=== PATIENT | female | born 2000 | race Caucasian/White ===

== ENCOUNTER → 2018-10-23 14:28 | Outpatient (CLI) | payer OTHER, SELFPAY ==
[2018-10-23 17:09] LABS: Internal QC Validated? YES +Cl - CLEAR BKGD; Pregnancy, Urine Negative Negative
--- OUTSIDE RECORDS SUMMARY | 2018-12-26 02:47 | XMS RPT_ITS ---
:2000 Author Organization OHIP Care Team Providers Name Role Phone LUC ROJAS Attending Unavailable LUC ROJAS Referring Unavailable YAJAIRA AYON Attending Unavailable YAJAIRA AYON Referring Unavailable Eulalia Ford PA-C Attending Unavailable Eulalia Ford PA-C Referring Unavailable Antwon Madrigal Primary Care Unavailable PROBLEMS PROBLEMS DATE TYPE CONDITION / CODE ATTENDING STATUS SOURCE 10/24/2018 Active Encounter for Active [place] screening for Clinic Main infections with a [place] predominantly Repository sexual mode of transmission / Z11.3(ICD-10) 10/23/2018 Unknown L70.0 - Acne Eulalia Ford PA-C Active [facility] / Community L70.0(ICD-10) Hospital Repository 02/03/2018 Admitting Encounter for YAJAIRA AYON Active [facility] Diagnosis pre-[place] ([place] examination / Repository Z02.1(ICD-10) PROCEDURES PROCEDURES No Procedure Records FoundRESULTS RESULTS PROGRESS Observed: 10/23/2018 Status: COMPLETED Source: [place] 4:04 PM [facility] REPOSITORY HNO ID: [id number] Author: Luc Tee Service: (none) Author Type: Physician Type: Progress Notes Filed: 10/23/2018 4:42 PM Note Text: Genny Harrison is a 18 year old who presents for her annual gynecologic exam without complaints. Take OCPs and spironolactone for acne with improvement. In college- sophomore- studying OT Menses: cycles every 28 days and 3-4 days of flow. Contraception: oral contraceptives HPV vaccine: unsure Last pap smear: never Sexually active: Yes History of STDS: None Patient concerns for STD exposure: No. Pain with intercourse: No Postcoital bleeding: No Exercise: routine Diet: Obstetric History T0 L0 SAB0 TAB0 Ectopic0 Multiple0 Live Births0 PAST MEDICAL HISTORY Diagnosis Date - Irregular menses - Unspecified disorder of thyroid mother No past surgical history on file.History reviewed. No pertinent family history.SOCIAL HISTORY Social History Substance Use Topics - Smoking status: Never Smoker - Smokeless tobacco: Never Used - Alcohol use No REVIEW OF SYSTEMS Abdomen: No bloating, early satiety, indigestion, or increased flatulence. No abdominal pain, nausea, vomiting, diarrhea, or constipation. Bladder: No dysuria, gross hematuria, urinary frequency, urinary urgency, or incontinence. Breast: No breast lumps, nipple d/c, overlying skin changes, redness or skin retraction. Allergies and current medication updated:Yes EXAM: BP 108/70 Ht 5' 2.5 (1.59m) Wt 121 lb (54.9kg) LMP 10/09/2018 BMI 21.76 kg/(m2). GENERAL: pleasant, female in no apparent distress HEENT: Normocephalic, atraumatic, mucus membranes moist and no lesions NECK: Supple, full range of motion, no adenopathy and thyroid normal DERMATOLOGY: Normal, without lesions, non-icteric and non-hirsute ABDOMEN: soft, non-tender and no masses PELVIC: deferred BIMANUAL: deferred NEURO: alert and oriented x3,exam grossly non-focal EXTREMITIES: normal ASSESSMENT/PLAN: 1) Health maintenance: Pap starting at the age of 21. Nutrition, exercise, and routine health maintenance exams reviewed. HPV vaccine 2) Contraception: oral contraceptives . Contraceptive options reviewed and information provided. 3) STD screening: Accepted STD check for Gonorrhea and Chlamydia. 4) Follow up one year or sooner as needed. Luc Young MD. ESME Observed: 10/23/2018 Status: COMPLETED Source: [place] 3:50 PM [facility] REPOSITORY Office Visit ([facility]OOB) GENNY HARRISON ([id number]) 2000 F Date Time Provider Department 10/23/18 3:50 PM LUC ROJAS During your visit today, we recorded the following information about you: Blood pressure Weight Height Last Period 108/70 54.9 kg 1.588 m 10/09/18 Luc Young MD 10/23/2018 4:42 PM Signed Genny Harrison is a 18 year old who presents for her annual gynecologic exam without complaints. Take OCPs and spironolactone for acne with improvement. In college- sophomore- studying OT Menses: cycles every 28 days and 3-4 days of flow. Contraception: oral contraceptives HPV vaccine: unsure Last pap smear: never Sexually active: Yes History of STDS: None Patient concerns for STD exposure: No. Pain with intercourse: No Postcoital bleeding: No Exercise: routine Diet: Obstetric History T0 L0 SAB0 TAB0 Ectopic0 Multiple0 Live Births0 PAST MEDICAL HISTORY Diagnosis Date - Irregular menses - Unspecified disorder of thyroid mother No past surgical history on file.History reviewed. No pertinent family history.SOCIAL HISTORY Social History Substance Use Topics - Smoking status: Never Smoker - Smokeless tobacco: Never Used - Alcohol use No REVIEW OF SYSTEMS Abdomen: No bloating, early satiety, indigestion, or increased flatulence. No abdominal pain, nausea, vomiting, diarrhea, or constipation. Bladder: No dysuria, gross hematuria, urinary frequency, urinary urgency, or incontinence. Breast: No breast lumps, nipple d/c, overlying skin changes, redness or skin retraction. Allergies and current medication updated:Yes EXAM: BP 108/70 Ht 5' 2.5 (1.59m) Wt 121 lb (54.9kg) LMP 10/09/2018 BMI 21.76 kg/(m2). GENERAL: pleasant, female in no apparent distress HEENT: Normocephalic, atraumatic, mucus membranes moist and no lesions NECK: Supple, full range of motion, no adenopathy and thyroid normal DERMATOLOGY: Normal, without lesions, non-icteric and non-hirsute ABDOMEN: soft, non-tender and no masses PELVIC: deferred BIMANUAL: deferred NEURO: alert and oriented x3,exam grossly non-focal EXTREMITIES: normal ASSESSMENT/PLAN: 1) Health maintenance: Pap starting at the age of 21. Nutrition, exercise, and routine health maintenance exams reviewed. HPV vaccine 2) Contraception: oral contraceptives . Contraceptive options reviewed and information provided. 3) STD screening: Accepted STD check for Gonorrhea and Chlamydia. 4) Follow up one year or sooner as needed. Luc Young MD. Referring Provider: SELF [[id number]] Allergies As of Date: 10/23/2018 (No Known Allergies) Date Reviewed: 10/23/2018 Reviewed by: Arin Navarrete Ma - Fully Assessed Primary Visit Diagnosis:Screen for STD (sexually transmitted disease) [Z11.3] Other Visit Diagnoses:Encounter for gynecological examination (general) (routine) without abnormal findings [Z01.419] Encounter for surveillance of contraceptive pills [Z30.41] Order(s):Drospirenone-Ethinyl Estradiol (MAYURI, 28,) 3-0.02 mg per tabletTake 1 tablet by mouth once daily.Disp: 1 PackageRfl: 11 GC/CHLAMYDIA AMPLIF, URINE [SQUGCCT] Order #: [id number] FUTURE Prescriptions as of 10/23/2018 Sig: DROSPIRENONE 3 MG-ETHINYL EST* Take 1 tablet by mouth once d* SPIRONOLACTONE 100 MG TABLET Problem List As Of Date: 10/23/2018 (None) Prescriptions ordered this encounter Disp Refills Start End DROSPIRENONE 3 MG-ETHINYL ESTRADIOL * 1 Pa* 11 10/23/2018 Route: ORAL Sig: Take 1 tablet by mouth once daily. Medications Discontinued During This Encounter Drospirenone-Ethinyl Estradiol (MAYURI,* 1 Pa* 3 07/10/2018 10/23/2018 Route: ORAL Sig: Take 1 tablet by mouth once daily. Disc: Reason for discontinue is not on file. Disposition: Return in 1 year (on 10/23/2019) for Annual Exam. Follow-up and Disposition History Recorded Encounter Status:Closed by LUC TEE MD on 10/23/18 ,URINE Collected: 10/23/2018 Status: F Source: [place] 2:39 PM [facility] [place] CODE TESTS RESULT OUT OF REFERENCE UNITS RANGE LAB L400.8000 Negative Normal HCGUQUAL Negative Result Comment: Very dilute urine specimens, as indicated by a low specific gravity, may not contain senior human resources representative levels of hCG. If is still suspected, a first morning urine specimen should be collected 48 hours later and tested. Performed By: #### [id number] #### [facility] [address] [place], [address] GC/CHLAMYDIA AMP, UR Collected: 10/23/2018 Status: F Source: [place] 9:43 AM [facility] REPOSITORY TYPE CODE TESTS RESULT OUT OF REFERENCE UNITS RANGE LAB UGCAMP GC Negative Amplification, for Neisseria Ur gonorrhoeae by amplification. LAB UCLAMP Negative Chlamydia for Chlamydia Amplif, Ur trachomatis by amplification. Result Comment: For screening asymptomatic women, a vaginal swab specimen (APTIMA vaginal swab [id number]) is optimal. Urine specimens have reduced sensitivity for Chlamydia trachomatis or Neisseria gonorrh oeae infection in female patients without symptoms. This test was developed and its performance characteristics determined by [facility]'s [facility] [place] ([facility]). It has not been cleared or approved by the FDA. [facility] is regulated under CLIA as qualified to perform high-complexity testing. This test is used for clinical purposes. It should not be regarded as investigational or for research. Performed By: #### UGCCT #### [facility] [address], [place] [address] XR CHEST PA AND Observed: 02/03/2018 Status: F Source: [place] LATERAL 10:22 AM [place] ([place] REPOSITORY PROCEDURE: FRONTAL AND LATERAL CHEST RADIOGRAPHS, 02/03/2018 10:22 AM CLINICAL HISTORY: Preemployment examination. TECHNIQUE: 2 views, 2 images. COMPARISON: Two-view chest radiograph 02/24/2017 RESULT: Cardiac silhouette and pulmonary vascularity are within normal limits. Lungs are symmetrically inflated and clear. There is no pleural effusion or pneumothorax. Osseous structures are intact. IMPRESSION: No acute cardiopulmonary process. ALLERGIES ALLERGIES DATE TYPE / CODE NAME / CODE REACTION SEVERITY SOURCE Drug NO KNOWN [facility] Class/99173 [facility] 1003(SNOMED Repository CT) ENCOUNTERS ENCOUNTERS ADMIT/DISCHARGE ACCOUNT NUMBER ADMITTING ENCOUNTER LOCATION SOURCE CLASS 10/24/2018/10/24/19 [id number] Ambulatory [address] Repository 10/23/2018/10/24/19 [id number] Ambulatory [address] Repository 10/23/2018 [id number] Ambulatory [facility] ding:MTLAB Repository 02/03/2018 [id number] Ambulatory [facility] ([place]) Repository PAYERS PAYERS ENCOUNTER GUARANTOR PAYER SUBSCRIBER SOURCE 10/23/2018 GENNY HARRISON178 Primary SAUL [address] Insurance:MEDICAL WEBERDOB: [email or web address] [address]Nbr: Number: Repository [id number] (HP) Date:[id number] [address]VX: 10/23/2018 [facility] Number: Effective Repository Date:2018-10-23
== END ==
PROVIDERS: Referring Provider Physician Assistant; Visit Provider Physician Assistant
DX: L70.0 Acne vulgaris (principal); Z79.899 Other long term (current) drug therapy
CPT/HCPCS: 81025

== ENCOUNTER → 2018-11-24 13:59 | Outpatient (CLI) | payer OTHER, SELFPAY ==
[2018-11-24 15:33] LABS: Internal QC Validated? YES +Cl - CLEAR BKGD; Pregnancy, Urine Negative Negative
== END ==
PROVIDERS: Referring Provider Nurse Practitioner Family; Visit Provider Nurse Practitioner Family
DX: L70.0 Acne vulgaris (principal); Z79.899 Other long term (current) drug therapy
CPT/HCPCS: 81025

== ENCOUNTER → 2019-01-05 | Outpatient (CLI) | payer OTHER, SELFPAY ==
[2019-01-05 16:04] LABS: Internal QC Validated? YES +Cl - CLEAR BKGD; Pregnancy, Urine Negative Negative
== END | disposition home or self-care (01) ==
LOC: MTLAB 14:12
PROVIDERS: Referring Provider Nurse Practitioner Family; Visit Provider Nurse Practitioner Family
DX: L70.0 Acne vulgaris (principal); Z79.899 Other long term (current) drug therapy
CPT/HCPCS: 81025